=== PATIENT | male | born 1975 | race Caucasian/White ===

== ENCOUNTER 2017-03-26 18:25 | Emergency (ER) | payer OTHER ==
[2017-03-26] MEDS ORDERED: Ketorolac 30 MG/ML SDV IVPUSH ONE (19:25)
[2017-03-26] MEDS ORDERED: Ondansetron 4 MG/2 ML SDV IVPUSH ONE (19:25)
[2017-03-26] MEDS ORDERED: Sodium Chloride 0.9% 1,000 ML IV SCH (19:30)
--- NOTE | 2017-03-26 19:32 | EDM.PDOC ---
ED HPI GENERAL MEDICAL PROBLEM - General Chief Complaint: Headache Stated Complaint: MIGRAINE Time Seen by Provider: 03/26/17 19:22 Source of Information: Reports: Patient History Limitations: Reports: No Limitations - History of Present Illness INITIAL COMMENTS - FREE TEXT/NARRATIVE: HISTORY AND PHYSICAL: History of present illness: Patient is a 42-year-old male who presents to the emergency room with complaints of a headache for the past 24 hours. Patient reports that he has had headaches in the past but this one is worse than previous aches. Headache came on gradually and describes it as a pressure wrapping around his head like a headband-does have some nausea. Patient states he has an appointment with his primary care provider tomorrow but could not wait to be seen until then as the pain is too severe. He denies any recent injury or trauma to his head. Denies any change in vision, photophobia, or noise sensitivity. Denies any abdominal pain, vomiting, diarrhea. Review of systems: As per history of present illness and below otherwise all systems reviewed and negative. Past medical history: As per history of present illness and as reviewed below otherwise noncontributory. Surgical history: As per history of present illness and as reviewed below otherwise noncontributory. Social history: No reported history of drug or alcohol abuse. Family history: As per history of present illness and as reviewed below otherwise noncontributory. Physical exam: Gen.: Well-developed and well-nourished 42-year-old male. Appears nontoxic. Both to speak in full sentences without shortness of breath. Alert and oriented. HEENT: Atraumatic, normocephalic, pupils and reactive bilaterally-3mm, negative for conjunctival pallor or scleral icterus, mucous membranes moist, throat clear , neck supple, nontender, trachea midline. No lymphadenopathy. No nuchal rigidity. Lungs: Clear to auscultation, breath sounds equal bilaterally, chest nontender. Heart: S1S2, regular, negative for clicks, rubs, or JVD. Abdomen: Soft, nondistended, nontender. Negative for masses. Negative for costovertebral tenderness. Pelvis: Stable nontender. Genitourinary: Deferred. Rectal: Deferred. Extremities: Atraumatic, negative for cords or calf pain. Neurovascular unremarkable. Neuro: Awake, alert, oriented. Cranial nerves II through XII unremarkable. Cerebellum unremarkable. Motor and sensory unremarkable throughout. Exam nonfocal. Blood pressure is 180/106, patient denies any previous history of hypertension or taking any antihypertensive medications. CT will be ordered. Patient will receive IV therapeutics. We'll continue to monitor Head CT shows no acute abnormality with a minimal degree of maxillary sinus disease. This does correlate with some sinus pressure/congestion that the patient now expresses after telling him these results. I will treat him with a prescription for Augmentin, as this may be also contributing to his headache. She rates his pain at a 5 out of 10 at this time. I did offer additional pain medications which she declined at this time. He would like to receive the rest is fluids and then be discharged to home. Diagnostics: Head CT without contrast Therapeutics: IV fluid, Zofran, Toradol Impression: Tension headache Sinusitis Plan: 1. Please take the Augmentin for your sinus infection. 2. You may take Excedrin Migraine or Tylenol as needed for furthering headache pain. 3. Follow-up with your primary care provider in the next 1-2 days. Return to the ED as needed and as discussed Definitive disposition and diagnosis as appropriate pending reevaluation and review of above. Duration: Day(s): Location: Reports: Head Parietal Pain Score (Numeric/FACES): 7 - Related Data Allergies Allergy/AdvReac Type Severity Reaction Status Date / Time No Known Allergies Allergy Verified 03/26/17 19:10 Home Meds: Home Meds . [No Known Home Meds] 03/26/17 [History] Past Medical History HEENT History: Reports: None Cardiovascular History: Reports: None Respiratory History: Reports: None Gastrointestinal History: Reports: GERD Genitourinary History: Reports: None Musculoskeletal History: Reports: None Neurological History: Reports: None Psychiatric History: Reports: None Endocrine/Metabolic History: Reports: None Hematologic History: Reports: None Immunologic History: Reports: None Oncologic (Cancer) History: Reports: None Dermatologic History: Reports: None - Past Surgical History Head Surgeries/Procedures: Reports: None HEENT Surgical History: Reports: None Cardiovascular Surgical History: Reports: None GI Surgical History: Reports: Appendectomy Male Surgical History: Reports: None Endocrine Surgical History: Reports: None Dermatological Surgical History: Reports: None Social & Family History - Family History Family Medical History: Noncontributory - Tobacco Use Smoking Status *Q: Never Smoker - Caffeine Use Caffeine Use: Reports: Coffee - Recreational Drug Use Recreational Drug Use: No ED ROS GENERAL - Review of Systems Review Of Systems: ROS reveals no pertinent complaints other than HPI. (See dictation) Constitutional: Denies: Fever, Chills HEENT: Denies: Ear Pain, Eye Pain Respiratory: Denies: Shortness of Breath Cardiovascular: Denies: Chest Pain GI/Abdominal: Reports: Nausea. Denies: Abdominal Pain, Diarrhea : Denies: Flank Pain Musculoskeletal: Denies: Neck Pain Neurological: Reports: Headache. Denies: Confusion, Dizziness, Syncope, Weakness Psychiatric: Denies: Agitation, Anxiety, Confusion - Physical Exam Exam: See Below (See dictation) Course - Vital Signs Last Recorded V/S: Last Vital Signs Temp 36.7 C 03/26/17 19:10 Pulse 90 03/26/17 19:10 Resp 18 03/26/17 19:10 BP 180/106 H 03/26/17 19:10 Pulse Ox 99 03/26/17 19:10 - Orders/Labs/Meds Orders: Active Orders 24 hr Category Date Time Status Head wo Cont [CT] Stat Exams 03/26/17 19:25 Taken Sodium Chloride 0.9% [Normal Saline] 1,000 ml Med 03/26/17 19:30 Active IV ASDIRECTED Medication Orders Sodium Chloride (Normal Saline) 1,000 mls @ 999 mls/hr IV ASDIRECTED RUBENS Last Admin: 03/26/17 19:52 Dose: 999 mls/hr Meds: Medications Generic Name Dose Route Start Last Admin Trade Name Freq PRN Reason Stop Dose Admin Sodium Chloride 1,000 mls @ 999 mls/hr 03/26/17 19:30 03/26/17 19:52 Normal Saline IV 999 mls/hr ASDIRECTED RUBENS Administration Discontinued Medications Generic Name Dose Route Start Last Admin Trade Name Freq PRN Reason Stop Dose Admin Ketorolac Tromethamine 30 mg 03/26/17 19:25 03/26/17 19:55 Toradol IVPUSH 03/26/17 19:26 30 mg ONETIME ONE Administration Ondansetron HCl 4 mg 03/26/17 19:25 03/26/17 19:55 Zofran IVPUSH 03/26/17 19:26 4 mg ONETIME ONE Administration Departure - Departure Time of Disposition: 20:25 Disposition: Home, Self-Care 01 Clinical Impression: Tension-type headache, Sinusitis - Discharge Information Referrals: PCP,None [Primary Care Provider] - Forms: ED Department Discharge Additional Instructions: My general discharge The following information is given to patients seen in the emergency department who are being discharged to home. This information is to outline your options for follow-up care. We provide all patients seen in our emergency department with a follow-up referral. The need for follow-up, as well as the timing and circumstances, are variable depending upon the specifics of your emergency department visit. If you don't have a primary care physician on staff, we will provide you with a referral. We always advise you to contact your personal physician following an emergency department visit to inform them of the circumstance of the visit and for follow-up with them and/or the need for any referrals to a consulting specialist. The emergency department will also refer you to a specialist when appropriate. This referral assures that you have the opportunity for follow-up care with a specialist. All of these measure are taken in an effort to provide you with optimal care, which includes your follow-up. Under all circumstances we always encourage you to contact your private physician who remains a resource for coordinating your care. When calling for follow-up care, please make the office aware that this follow-up is from your recent emergency room visit. If for any reason you are refused follow-up, please contact the [facility] at and asked to speak to the emergency department charge nurse. [facility] [address] [place] [id number] 1. Please take the Augmentin for your sinus infection. 2. You may take Excedrin Migraine or Tylenol as needed for furthering headache pain. 3. Follow-up with your primary care provider in the next 1-2 days. Return to the ED as needed and as discussed - My Orders Last 24 Hours: My Active Orders 03/26/17 19:25 Head wo Cont [CT] Stat 03/26/17 19:30 Sodium Chloride 0.9% [Normal Saline] 1,000 ml IV ASDIRECTED - Assessment/Plan Last 24 Hours: My Active Orders 03/26/17 19:25 Head wo Cont [CT] Stat 03/26/17 19:30 Sodium Chloride 0.9% [Normal Saline] 1,000 ml IV ASDIRECTED
--- NOTE | 2017-03-27 10:35 | CT ---
EXAM DATE: 03/26/17 PATIENT'S AGE: 42 Patient: WLILIS HAMPTON Facility: [place], [place] : 1975 Study: CT Head [id number]/16/2017 7:48:05 PM Ordering Physician: ESEQUIEL Final Report: INDICATION: Headache. TECHNIQUE: CT head without i.v. contrast. COMPARISON: None FINDINGS: CSF spaces: Within normal limits for age. Brain parenchyma: The brain parenchyma is normal in appearance with preservation of the devlin-white differentiation. No sign of mass, hemorrhage, or midline shift seen. Skull base and calvarium: Minimal mucosal thickening involving the right and left maxillary sinuses. The mastoid air cells are clear. The visualized orbits are grossly unremarkable. No skull fractures are seen. IMPRESSION: 1. No acute abnormality. Minimal degree of maxillary sinus disease. Dictated by Owen Mayer MD @ 03/26/2017 7:54:03 PM Dictated by: Owen Mayer MD @ 03/26/2017 19:54:08 (Electronic Signature) Report Signed by Proxy. [facility]ITALJustino
== END 2017-03-26 21:15 | disposition home or self-care (01) ==
LOC: MW.ED 18:25
DX: G44.209 Tension-type headache, unspecified, not intractable (principal); J32.9 Chronic sinusitis, unspecified; Z90.49 Acquired absence of other specified parts of digestive tract
CPT/HCPCS: 70450; 96361; 96374; 96375; 99283; J1885; J2405; J7040